=== PATIENT | female | born 1955 | race Caucasian/White ===

== ENCOUNTER → 2024-04-19 23:31 | Outpatient (REF) | payer BC, SELFPAY ==
[2024-04-20 01:11] LABS: % Basophils 0.7 % (0-2); % Eosinophils 2.2 % (0-6); % Immature Granulocytes 0.1 % (0-0.5); % Lymphocytes 26.2 % (20.5-51.1); % Monocytes 6.2 % (1.7-9.3); % Neutrophils 64.6 % (42.2-75.2); Absolute Basophils 0.1 10^3/uL (0-0.2); Absolute Eosinophils 0.2 10^3/uL (0-0.7); Absolute Lymphocytes 1.8 10^3/uL (1.2-3.4); Absolute Monocytes 0.4 10^3/uL (0.1-0.6); Absolute Neutrophils 4.5 10^3/uL (1.4-6.5); Hematocrit 35.8 % (37.0-47.0); Mean Corp Hgb Conc. 33.5 g/dL (33.0-37.0); Mean Corpuscular Hgb 27.5 pg (27.0-31.0); Mean Corpuscular Volume 82.1 fL (81.0-99.0); Mean Platelet Volume 8.5 fL (7.4-10.4); Nucleated Red Blood Cells % 0 %; Platelet Count 321 10^3/uL (130-400); Red Blood Cell Count 4.36 10^6/uL (4.20-5.40); Red Cell Dist. Width 13.2 % (11.5-14.5); White Blood Cell Count 6.9 10^3/uL (4.8-10.8)
[2024-04-20 01:25] LABS: AST (SGOT) 31 U/L (14-36); Albumin 4.4 g/dl (3.5-5.0); Alkaline Phosphatase 63 U/L (38-126); Blood Urea Nitrogen 14 mg/dl (7-17); Carbon Dioxide 27 mmol/L (22-30); Glucose 91 mg/dl (70-99); HDL Cholesterol 55 mg/dl; LDL Cholesterol, Calculated 115 mg/dl; Total Bilirubin 0.4 mg/dl (0.2-1.3); Total Cholesterol 190 mg/dl (50-199); Total Protein 6.7 g/dl (6.3-8.2); Triglyceride 102 mg/dl (10-149); Very Low Density Lipoprotein 20 mg/dl (0-30); eGFR > 60.00
[2024-04-20 01:34] LABS: ALT (SGPT) 20 U/L (0-35); Calcium 9.5 mg/dl (8.4-10.2); Chloride 101 mmol/L (98-107); Potassium 4.8 mmol/L (3.5-5.1); Sodium 135 mmol/L (135-145)
== END ==
LOC: REG 23:31
PROVIDERS: ATTENDING PHYSICIAN Physician Assistant
DX: M85.89 Other specified disorders of bone density and structure, multiple sites (principal); K21.9 Gastro-esophageal reflux disease without esophagitis; K59.00 Constipation, unspecified; Z13.220 Encounter for screening for lipoid disorders; Z13.1 Encounter for screening for diabetes mellitus; Z13.0 Encounter for screening for diseases of the blood and blood-forming organs and certain disorders involving the immune mechanism
CPT/HCPCS: 80053; 80061; 85025

== ENCOUNTER → 2024-10-19 07:34 | Outpatient (REF) | payer BC, SELFPAY | LOC: WDC 07:34 | PROVIDERS: ATTENDING PHYSICIAN Nurse Practitioner Adult Health | DX: Z12.31 Encounter for screening mammogram for malignant neoplasm of breast (principal) | CPT/HCPCS: 77063; 77067 ==

== ENCOUNTER → 2024-11-05 10:33 | Outpatient (REF) | payer BC, SELFPAY | LOC: WDC 10:33 | PROVIDERS: ATTENDING PHYSICIAN Nurse Practitioner Adult Health | DX: R92.8 Other abnormal and inconclusive findings on diagnostic imaging of breast (principal) | CPT/HCPCS: 76642 ==

== ENCOUNTER → 2025-03-28 10:15 | Outpatient (REF) | payer BC, SELFPAY | LOC: WDC 10:15 | PROVIDERS: ATTENDING PHYSICIAN Obstetrics & Gynecology Gynecology; FAMILY PHYSICIAN Physician Assistant | DX: N63.10 Unspecified lump in the right breast, unspecified quadrant (principal) | CPT/HCPCS: 76642; 77061; 77065 ==

== ENCOUNTER → 2025-04-01 10:05 | Outpatient (REF) | payer BC, SELFPAY ==
--- NOTE | 2025-04-03 10:21 | OID.BR.INTR ---
[facility] Breast Navigator - Initial
- -
Did not meet patient at time of biopsy. Will follow up per protocol.
== END ==
LOC: WDC 10:05
PROVIDERS: ATTENDING PHYSICIAN Obstetrics & Gynecology Gynecology; FAMILY PHYSICIAN Physician Assistant
DX: N63.11 Unspecified lump in the right breast, upper outer quadrant (principal)
CPT/HCPCS: 88305; 19083; 88341; 88342; 88360; A4648

== ENCOUNTER → 2025-04-18 18:53 | Outpatient (REF) | payer BC, SELFPAY | LOC: MRI 3T 18:53 | PROVIDERS: ATTENDING PHYSICIAN Surgery; FAMILY PHYSICIAN Physician Assistant | DX: C50.411 Malignant neoplasm of upper-outer quadrant of right female breast (principal); Z17.0 Estrogen receptor positive status [ER+] | CPT/HCPCS: 77049; A9585 ==

== ENCOUNTER → 2025-05-03 00:35 | Outpatient (REF) | payer BC, SELFPAY ==
[2025-05-03 01:53] LABS: Sodium 136 mmol/L (135-145)
== END ==
LOC: OLAB 00:35
PROVIDERS: ATTENDING PHYSICIAN Internal Medicine
DX: E87.1 Hypo-osmolality and hyponatremia (principal)
CPT/HCPCS: 84295

== ENCOUNTER → 2025-05-06 08:51 | Outpatient (REF) | payer BC, SELFPAY | LOC: WDC 08:51 | PROVIDERS: ATTENDING PHYSICIAN Surgery; FAMILY PHYSICIAN Physician Assistant | DX: C50.411 Malignant neoplasm of upper-outer quadrant of right female breast (principal) | CPT/HCPCS: 38792; 76942; A9541 ==

== ENCOUNTER 2025-05-07 06:21 | Day surgery (SDC) | payer BC, SELFPAY ==
[2025-05-01 08:55] LABS: Hematocrit 35.3 % (37.0-47.0); Hemoglobin 11.4 g/dL (12.0-16.0); Mean Corp Hgb Conc. 32.3 g/dL (33.0-37.0); Mean Corpuscular Volume 83.8 fL (81.0-99.0); Platelet Count 270 10^3/uL (130-400); Red Cell Dist. Width 14.0 % (11.5-14.5)
[2025-05-01 10:04] LABS: ALT (SGPT) 19 U/L (0-35); AST (SGOT) 28 U/L (14-36); Albumin 4.5 g/dl (3.5-5.0); Alkaline Phosphatase 51 U/L (38-126); Blood Urea Nitrogen 13 mg/dl (7-17); Calcium 8.8 mg/dl (8.4-10.2); Carbon Dioxide 24 mmol/L (22-30); Chloride 98 mmol/L (98-107); Glucose 83 mg/dl (70-99); Potassium 4.5 mmol/L (3.5-5.1); Sodium 129 mmol/L (135-145); Total Protein 6.6 g/dl (6.3-8.2); eGFR > 60.00
[2025-05-01 10:07] LABS: Prealbumin (Transthyretin) 22.0 mg/dl (17.6-36.0)
[2025-05-01 10:20] LABS: Vitamin D, 25-OH*** 57.0 ng/mL (30-80)
[2025-05-01 14:04] VITALS: BMI 19.3
--- NOTE | 2025-05-02 09:58 | PTCARENOTE ---
Patients 05/01 Molly Ye- Era @ Dr. Desouza office notified
--- NOTE | 2025-05-02 15:46 | PTCARENOTE ---
Dr. Garcia notified of patient 129 sodium, collected on 05/01. No additional interventions indicated
[2025-05-07 10:28] VITALS: BMI 19.3
[2025-05-07 10:29] VITALS: BP 153/85
[2025-05-07] MEDS: TYLENOL 1000 MG PO (10:32)
[2025-05-07] MEDS: LOVENOX 40 MG SC (10:46)
[2025-05-07] MEDS: NORMOSOL-R/PLASMALYTE-A 1000 IV (10:48)
[2025-05-07 12:28] VITALS: BP 98/50
[2025-05-07 12:30] VITALS: BP 96/52
--- NOTE | 2025-05-07 12:31 | W.IMMPOSTOP ---
Surgical Immed Post Op Note
-
Primary Surgeon: Erick
Assisting Surgeon: None
Pre-op Diagnosis: Right breast ca
Post-op Diagnosis: right breast ca
Procedure Performed: Right lumpectomy, sentinel lymph node mapping and biopsy
Anesthesia Type: TIVA
Specimen / Cultures: Right lumpectomy, margins, sentinel nodes
Estimated Blood Loss: 4cc
Complications: None
Operative Findings: None
--- NOTE | 2025-05-07 12:33 | OR.RPT ---
Addendum entered and electronically signed by Radha Suarez MD 05/07/25 14:47:
Synoptic report sentinel node biopsy
Procedure performed with curative intent: Yes
Method used to identify sentinel nodes in neoadjuvant setting: N/A
Method used to identify sentinel nodes in none neoadjuvant setting: Radioactive tracer
All nodes at end of dye filled channels removed: N/A
All significant radioactive nodes removed: Yes
All clinically palpable suspicious nodes removed: Yes
Positive nodes prior to neoadjuvant chemotherapy clipped: N/A
Original Note:
Operative Report
Operative Report
ED procedure: 05/07/2025
Surgeon: Erick
Preoperative diagnosis: Right breast CA
Postoperative diagnosis: Right breast CA
Procedure: Right lumpectomy and sentinel lymph node mapping and biopsy
The patient is a 69-year-old female who presented with a small palpable right breast mass who underwent workup and biopsy showing favorable early stage right breast carcinoma. She presents now for right lumpectomy and sentinel lymph node mapping
and biopsy. On the day prior to the procedure the patient presented to the [place] [facility] where technetium radiotracer was injected in the breast parenchyma.
On the day of surgery she presented to same-day surgical services unit and was prepped. She verified site and procedure. DVT and antibiotic prophylaxis were provided and she was taken to the operating room.
In the supine position intravenous sedation was delivered. Right breast and axilla were prepped and draped in the usual sterile fashion and all tissues were anesthetized with 1% lidocaine plain after an appropriate timeout was performed. Attention
was first turned to the axilla where a curvilinear incision was made inferior to the hairline overlying the area of highest external gamma count. Dissection was carried through clavipectoral fascia using the cautery and 2 sentinel node packets were
encountered and excised by clamping and tying feeding vessels. These were sent for permanent analysis and after the removal there was a greater than 4 fold reduction of background count. Hemostasis was verified. Marcaine 0.5% plain was instilled
into all tissues and the wound was closed using simple interrupted 3-0 plain on deep intermediate and subcutaneous tissue and skin was closed with a running subcuticular 4 Monocryl. Next attention was turned to the lumpectomy where a curvilinear
incision was made overlying the palpable mass. Skin flaps were elevated with the cautery and a wide lumpectomy was performed with the cautery. Time out of body was noted and the specimen was oriented for the pathologist and sent for permanent
analysis. Additional margins were harvested from the posterior, medial, superior, lateral, inferior, and anterior dimensions. These were oriented as well. Hemostasis was verified. Hemoclips were placed in the resection cavity and Marcaine 0.5%
plain was instilled into all tissues. This wound was closed in the same manner as the axillary incision. Surgical glue and sterile compressive dressings were applied. All sponge needle and instrument counts were correct and the patient was
transferred back to the same-day surgical services unit to recover
([id number])
[2025-05-07 12:45] VITALS: BP 112/62
[2025-05-07 13:00] VITALS: BP 118/64
[2025-05-07 13:15] VITALS: BP 112/77
== END 2025-05-07 13:28 | disposition home or self-care (01) ==
LOC: SDS 06:21
PROVIDERS: ATTENDING PHYSICIAN Surgery; FAMILY PHYSICIAN Physician Assistant
DX: C50.411 Malignant neoplasm of upper-outer quadrant of right female breast (principal)
CPT/HCPCS: 38525; 19301; 38900; 36415; 80053; 82306; 84134; 85027; 88305; 88307; 88341; 88342; 93005

== ENCOUNTER → 2025-05-23 00:27 | Outpatient (REF) | payer BC, SELFPAY ==
[2025-05-23 01:25] LABS: HDL Cholesterol 67 mg/dl; LDL Cholesterol, Calculated 128 mg/dl; Very Low Density Lipoprotein 16 mg/dl (0-30)
== END ==
LOC: CLAB 00:27
PROVIDERS: ATTENDING PHYSICIAN Physician Assistant
DX: M85.89 Other specified disorders of bone density and structure, multiple sites (principal); C50.411 Malignant neoplasm of upper-outer quadrant of right female breast; K21.9 Gastro-esophageal reflux disease without esophagitis; E87.1 Hypo-osmolality and hyponatremia; Z13.220 Encounter for screening for lipoid disorders
CPT/HCPCS: 80061

== ENCOUNTER → 2025-06-14 10:30 | Outpatient (REF) | payer BC, MEDICARE, SELFPAY | LOC: RAD 10:30 | PROVIDERS: ATTENDING PHYSICIAN Internal Medicine Hematology & Oncology; FAMILY PHYSICIAN Physician Assistant | DX: Z78.0 Asymptomatic menopausal state (principal); C50.411 Malignant neoplasm of upper-outer quadrant of right female breast | CPT/HCPCS: 77080 ==

== ENCOUNTER 2025-07-02 06:21 | Outpatient (RCR) | payer BC, MEDICARE, SELFPAY | END 2025-07-02 23:59 | disposition home or self-care (01) | LOC: RPT 06:21 | PROVIDERS: ATTENDING PHYSICIAN Radiology Radiation Oncology; FAMILY PHYSICIAN Physician Assistant | DX: C50.411 Malignant neoplasm of upper-outer quadrant of right female breast (principal); M96.2 Postradiation kyphosis; L90.5 Scar conditions and fibrosis of skin; M62.81 Muscle weakness (generalized); Z98.890 Other specified postprocedural states | CPT/HCPCS: 97110; 97140; 97162; 97530 ==

== ENCOUNTER 2025-07-30 07:21 | Outpatient (RCR) | payer BC, MEDICARE, SELFPAY | END 2025-07-30 08:57 | disposition home or self-care (01) | LOC: RPT 07:21 | PROVIDERS: ATTENDING PHYSICIAN Radiology Radiation Oncology; FAMILY PHYSICIAN Physician Assistant | DX: C50.411 Malignant neoplasm of upper-outer quadrant of right female breast (principal); M96.2 Postradiation kyphosis; L90.5 Scar conditions and fibrosis of skin; M62.81 Muscle weakness (generalized); Z98.890 Other specified postprocedural states | CPT/HCPCS: 97110; 97112; 97140; 97530 ==

== ENCOUNTER → 2025-08-22 08:37 | Outpatient (REF) | payer BC, MEDICARE, SELFPAY | LOC: CPAP 08:37 | PROVIDERS: ATTENDING PHYSICIAN Nurse Practitioner Adult Health | DX: Z01.419 Encounter for gynecological examination (general) (routine) without abnormal findings (principal) | CPT/HCPCS: G0123 ==